=== PATIENT | female | born 1980 | race African-American/Black ===

== ENCOUNTER 2024-05-01 06:40 | Emergency (ER) | payer MEDICAID ==
[~2024-05-01] VITALS: Ht 162.6 cm; Wt 95.4 kg
[2024-05-01 06:44] VITALS: O2SAT 100
[2024-05-01] MEDS ORDERED: ACETAMINOPHEN 10MG/ML IV SOLN IV ONE (07:30)
[2024-05-01] MEDS ORDERED: METOCLOPRAMIDE HCL 10MG/2ML VIAL IV ONE (07:30)
[2024-05-01] MEDS: ACETAMINOPHEN 1000MG/100ML 100 ML IV NR (08:26)
[2024-05-01] MEDS: METOCLOPRAMIDE HCL 10MG/2ML VIAL IV NR (08:26)
[2024-05-01] MEDS ORDERED: HYDR12.54 PO (08:58)
[2024-05-01] MEDS ORDERED: TOPUD PO (08:58)
[2024-05-01 09:16] VITALS: BP 138/80; PULSE 74; RESP 16; TEMP 37.00296; O2SAT 100
== END 2024-05-01 09:16 | disposition home or self-care (01) ==
LOC: ER 06:40
DX: R51.9 Headache, unspecified (principal); I10 Essential (primary) hypertension; Z98.51 Tubal ligation status
CPT/HCPCS: 81025; 96365; 96375; 99284; J2765; Z7610 ×3; J0131

== ENCOUNTER 2024-08-12 11:49 | Emergency (ER) | payer MEDICAID ==
[~2024-08-12] VITALS: Ht 162.6 cm; Wt 95.7 kg
[~2024-08-12 11:49] MED LIST: HYDR12.54 PO; TOPUD PO
[2024-08-12 11:52] VITALS: O2SAT 100
[2024-08-12] MEDS ORDERED: AMOX1TAB16 MT (13:08)
[2024-08-12] MEDS ORDERED: OFLO5DRO4 LEFT EAR (13:08)
[2024-08-12 14:13] VITALS: BP 130/76; PULSE 77; RESP 16; TEMP 37.1; O2SAT 100
== END 2024-08-12 13:12 | disposition home or self-care (01) ==
LOC: ER 11:58
DX: H66.42 Suppurative otitis media, unspecified, left ear (principal); I10 Essential (primary) hypertension; Z79.899 Other long term (current) drug therapy; Z98.51 Tubal ligation status
CPT/HCPCS: 10060; 99283; Z7610